=== PATIENT | female | born 1975 | race African-American/Black ===

== ENCOUNTER 2017-03-06 13:51 | Emergency (ER) | payer BC, OTHER ==
[~2017-03-06] VITALS: Ht 175.3 cm; Wt 90.0 kg
[~2017-03-06 13:51] MED LIST: DARV PO; Z.0.NO CURRENT MEDS
[2017-03-06] MEDS ORDERED: SODIUM CHLOR 0.9% 1000 ML INJ 1,000 ML IV ONE (13:54)
--- NOTE | 2017-03-06 13:57 | PD ---
HPI Chief Complaint: Vertigo/Nausea/Vomiting Time Seen by Provider: 13:57 Travel History International Travel<30 days: No Contact w/Intl Traveler<30days: No Traveled to known affect area: No History of Present Illness HPI 41-year-old Afro-[place] female presents the emergency department via EMS with history of sudden onset dizziness, with severe nausea, and vomiting at 11:30 this morning while at work. Patient denies feeling unwell prior to this time. Patient denies headache, or other focal neuro deficit. Patient has no history of migraines in the past. Patient has no history of vertigo previous to this. She denies fever, chills, or other symptoms. Patient was given Zofran in the ambulance without much improvement. Patient states the room is spinning to the right. Patient has no known drug allergies. PFSH Past Medical History : 2 Para: 2 Social History Alcohol Use: No Tobacco Use: No Substance Use: No Allergies-Medications (Allergen,Severity, Reaction): Coded Allergies: No Known Allergies (Verified , 03/06/17) Reported Meds & Prescriptions Reported Meds & Active Scripts Active Review of Systems Except as stated in HPI: all other systems reviewed are Neg General / Constitutional: No: Fever, Chills Eyes: No: Diploplia, Blurred Vision, Photophobia, Drainage, Redness, Pain, Tearing, Blind Spots, Visual changes, Blindness HENT: Positive: Vertigo, No: Headaches, Lightheadedness, Sore Throat, Rhinitis , Rhinorrhea, Congestion, Nosebleed, Neck Stiffness, Neck Pain, Dental Difficulties, Earache Cardiovascular: No: Chest Pain or Discomfort Respiratory: No: Shortness of Breath Gastrointestinal: Positive: Nausea, Vomiting, No: Diarrhea, Abdominal Pain Genitourinary: No: Dysuria Musculoskeletal: No: Pain Skin: No Rash Neurologic: No: Weakness Psychiatric: No: Depression Endocrine: No: Polydipsia Hematologic/Lymphatic: No: Easy Bruising Physical Exam Narrative GENERAL: Patient appears in moderate distress. Patient actively dry heaving upon arrival. Patient is oriented 3 otherwise. SKIN: Warm and dry. Normal color. Normal turgor. HEAD: Atraumatic. Normocephalic. EYES: Pupils equal and round. No scleral icterus. No injection or drainage. Patient has moderate right going rotary nystagmus with ocular motion. ENT: No nasal bleeding or discharge. Mucous membranes pink and moist. Pharynx is normal. NECK: Trachea midline. Neck is supple and nontender. No bruits appreciated. CARDIOVASCULAR: Regular rate and rhythm. No murmurs gallops or rubs. RESPIRATORY: No accessory muscle use. Clear to auscultation. Breath sounds equal bilaterally. MUSCULOSKELETAL: Extremities without clubbing, cyanosis, or edema. No obvious deformities. NEUROLOGICAL: Awake and alert. No obvious cranial nerve deficits. Motor grossly within normal limits. Five out of 5 muscle strength in the arms and legs. Normal speech. PSYCHIATRIC: Appropriate mood and affect; insight and judgment normal. Data Data Last Documented VS Vital Signs Date Time Temp Pulse Resp B/P Pulse Ox O2 Delivery O2 Flow Rate FiO2 03/06/17 14:20 97 03/06/17 14:16 97.8 54 20 111/53 Orders Electrocardiogram (03/06/17 13:54) Ed Urine Pregnancytest Poc (03/06/17 13:54) Complete Blood Count With Diff (03/06/17 13:54) Comprehensive Metabolic Panel (03/06/17 13:54) Urinalysis - C+S If Indicated (03/06/17 13:54) Ct Brain W/O Iv Contrast(Rout) (03/06/17 13:54) Ecg Monitoring (03/06/17 13:54) Iv Access Insert/Monitor (03/06/17 13:54) Oximetry (03/06/17 13:54) Meclizine (Antivert) (03/06/17 14:00) Sodium Chloride 0.9% Flush (Ns Flush) (03/06/17 14:00) Sodium Chlor 0.9% 1000 Ml Inj (Ns 1000 M (03/06/17 13:54) Diphenhydramine Inj (Benadryl Inj) (03/06/17 14:00) Prochlorperazine Inj (Compazine Inj) (03/06/17 14:00) Beta Hcg (Quant/Titer) (03/06/17 14:00) Prochlorperazine Inj (Compazine Inj) (03/06/17 14:15) Labs Laboratory Tests Test 03/06/17 13:58 White Blood Count 21.3 TH/MM3 Red Blood Count 4.73 MIL/MM3 Hemoglobin 13.4 GM/DL Hematocrit 39.5 % Mean Corpuscular Volume 83.4 FL Mean Corpuscular Hemoglobin 28.2 PG Mean Corpuscular Hemoglobin 33.8 % Concent Red Cell Distribution Width 13.9 % Platelet Count 299 TH/MM3 Mean Platelet Volume 8.2 FL Neutrophils (%) (Auto) 75.7 % Lymphocytes (%) (Auto) 17.6 % Monocytes (%) (Auto) 5.7 % Eosinophils (%) (Auto) 0.5 % Basophils (%) (Auto) 0.5 % Neutrophils # (Auto) 16.1 TH/MM3 Lymphocytes # (Auto) 3.8 TH/MM3 Monocytes # (Auto) 1.2 TH/MM3 Eosinophils # (Auto) 0.1 TH/MM3 Basophils # (Auto) 0.1 TH/MM3 CBC Comment DIFF FINAL Differential Comment Total Bilirubin 0.3 MG/DL Alkaline Phosphatase 60 U/L Total Protein 7.8 GM/DL Human Chorionic Gonadotropin, LESS THAN 1 Quant MIU/ML MDM Medical Decision Making Medical Screen Exam Complete: Yes Emergency Medical Condition: Yes Differential Diagnosis Sudden onset of vertigo. Nausea and vomiting. Possible CVA. Narrative Course Patient is medically stable in the ambulance thomas when I examined her. Labs ordered including CBC, CMP, PT PTT and INR, serum hCG. CT of the head is ordered. IV access is obtained patient is given 10 mg Compazine IV as well as 25 mg Benadryl IV. Patient will be given 50 mg meclizine by mouth when nausea is controlled. Patient is awaiting medical bed placement. Patient has moved to [facility] and care is turned over to Mook Huynh PA-C. Condition: Stable Pb Lowry Mar 06, 2017 13:57
[2017-03-06] MEDS ORDERED: MECLIZINE HCL 25 MG TAB PO ONE (14:00)
[2017-03-06] MEDS ORDERED: SODIUM CHLORIDE 0.9% FLUSH 10 ML FLUSH IVF PRN (14:00)
[2017-03-06] MEDS ORDERED: diphenhydrAMINE HCL 50 MG/ML VIAL IV PUSH ONE (14:00)
[2017-03-06] MEDS ORDERED: PROCHLORPERAZINE INJ 10 MG/2 ML VIAL IM ONE (14:00)
[2017-03-06 14:15] LABS: AUTOMATED NEUTROPHIL # 16.1 TH/MM3 (1.8-7.7); BASOPHIL # 0.1 TH/MM3 (0-0.2); BASOPHIL % 0.5 % (0.0-2.0); EOSINOPHIL # 0.1 TH/MM3 (0-0.4); EOSINOPHIL % 0.5 % (0.0-4.0); HEMATOCRIT 39.5 % (35.0-46.0); HEMO FLAGS DIFF FINAL; LYMPH % 17.6 % (9.0-44.0); LYMPHOCYTE # 3.8 TH/MM3 (1.0-4.8); MEAN CELL VOLUME 83.4 FL (80.0-100.0); MEAN CORPUSCULAR HEMOGLOBIN 28.2 PG (27.0-34.0); MEAN CORPUSCULAR HGB CONC 33.8 % (32.0-36.0); MONO % 5.7 % (0.0-8.0); NEUT % 75.7 % (16.0-70.0); PLATELET COUNT 299 TH/MM3 (150-450); RED BLOOD COUNT 4.73 MIL/MM3 (4.00-5.30); RED CELL DISTRIBUTION WIDTH 13.9 % (11.6-17.2); WHITE BLOOD COUNT 21.3 TH/MM3 (4.0-11.0)
[2017-03-06] MEDS ORDERED: PROCHLORPERAZINE INJ 10 MG/2 ML VIAL IV PUSH ONE (14:15)
[2017-03-06 14:16] VITALS: BP 111/53; PULSE 54; RESP 20; TEMP 97.8; O2SAT 97
[2017-03-06 14:20] VITALS: O2SAT 97
[2017-03-06 14:35] LABS: ALKALINE PHOSPHATASE 60 U/L (45-117); BETA HCG QUANT LESS THAN 1 MIU/ML (0-5); TOTAL BILIRUBIN ADULT 0.3 MG/DL (0.2-1.0)
[2017-03-06 14:49] LABS: ALT (GPT) 21 U/L (10-53); ANION GAP 12 MEQ/L (5-15); AST (GOT) 18 U/L (15-37); BICARBONATE 22.2 MEQ/L (21.0-32.0); BLOOD UREA NITROGEN 10 MG/DL (7-18); CHLORIDE 104 MEQ/L (98-107); GLOMERULAR FILTRATION RATE 77 ML/MIN (>89); POTASSIUM 3.8 MEQ/L (3.5-5.1); SODIUM (NA) 138 MEQ/L (136-145)
--- NOTE | 2017-03-06 15:19 | RADRPT ---
EXAM DATE/TIME: 03/06/2017 15:07 [place] COMPARISON: No previous studies available for comparison. INDICATIONS : Sudden onset of dizziness, nausea. RADIATION DOSE: 51.63 CTDIvol (mGy) MEDICAL HISTORY : None SURGICAL HISTORY : None. ENCOUNTER: Initial ACUITY: 1 day PAIN SCALE: 0/10 LOCATION: cranial TECHNIQUE: Multiple contiguous axial images were obtained of the head. Using automated exposure control and adj ustment of the mA and/or kV according to patient size, radiation dose was kept as low as reasonably a chievable to obtain optimal diagnostic quality images. FINDINGS: CEREBRUM: The ventricles are normal. No evidence of midline shift, mass lesion, hemorrhage or acute infarction . No extra-axial fluid collections are seen. POSTERIOR FOSSA: The cerebellum and brainstem demonstrate no acute finding. The 4th ventricle is midline. The cerebe llopontine angle is unremarkable. EXTRACRANIAL: Visualized sinuses are clear. SKULL: The calvaria is intact. No evidence of skull fracture. CONCLUSION: No acute intracranial abnormality is identified. Sang Martin MD on March 06, 2017 at 15:15 Board Certified Radiologist. This report was verified electronically.
[2017-03-06] MEDS ORDERED: birth control PO ×2 (15:55)
[2017-03-06 16:01] LABS: BACTERIA, URINE RARE /hpf; BLOOD, URINE NEG (NEG); COMMENT (UR) CULT NOT INDICATED; CULTURE IF INDICATED CULT NOT INDICATED; GLUCOSE,URINE NEG (NEG); KETONE, URINE TRACE mg/dL (NEG); MUCUS URINE FEW /lpf (OCC); NITRITE,URINE NEG (NEG); SQUAMOUS EPITHELIAL CELL URINE <1 /hpf (0-5); URINE COLOR YELLOW (YELLW/STRAW)
[2017-03-06] MEDS ORDERED: MECL-62 PO (16:15)
--- NOTE | 2017-03-06 16:20 | PD ---
Physical Exam Date Seen by Provider: Mar 06, 2017 Time Seen by Provider: 16:16 Narrative 41-year-old female that presents to the ED for evaluation of possible vertigo. Patient was initially seen by Pb Garcia PA-C. Please refer to his note. Patient was signed out to me pending labs and reassessment. Data Data Last Documented VS Vital Signs Date Time Temp Pulse Resp B/P Pulse Ox O2 Delivery O2 Flow Rate FiO2 03/06/17 14:20 97 03/06/17 14:16 97.8 54 20 111/53 Orders Electrocardiogram (03/06/17 13:54) Ed Urine Pregnancytest Poc (03/06/17 13:54) Complete Blood Count With Diff (03/06/17 13:54) Comprehensive Metabolic Panel (03/06/17 13:54) Urinalysis - C+S If Indicated (03/06/17 13:54) Ct Brain W/O Iv Contrast(Rout) (03/06/17 13:54) Ecg Monitoring (03/06/17 13:54) Iv Access Insert/Monitor (03/06/17 13:54) Oximetry (03/06/17 13:54) Meclizine (Antivert) (03/06/17 14:00) Sodium Chloride 0.9% Flush (Ns Flush) (03/06/17 14:00) Sodium Chlor 0.9% 1000 Ml Inj (Ns 1000 M (03/06/17 13:54) Diphenhydramine Inj (Benadryl Inj) (03/06/17 14:00) Prochlorperazine Inj (Compazine Inj) (03/06/17 14:00) Beta Hcg (Quant/Titer) (03/06/17 14:00) Prochlorperazine Inj (Compazine Inj) (03/06/17 14:15) Cath For Specimen (03/06/17 15:13) Labs Laboratory Tests Test 03/06/17 03/06/17 13:58 15:20 White Blood Count 21.3 TH/MM3 Red Blood Count 4.73 MIL/MM3 Hemoglobin 13.4 GM/DL Hematocrit 39.5 % Mean Corpuscular Volume 83.4 FL Mean Corpuscular Hemoglobin 28.2 PG Mean Corpuscular Hemoglobin 33.8 % Concent Red Cell Distribution Width 13.9 % Platelet Count 299 TH/MM3 Mean Platelet Volume 8.2 FL Neutrophils (%) (Auto) 75.7 % Lymphocytes (%) (Auto) 17.6 % Monocytes (%) (Auto) 5.7 % Eosinophils (%) (Auto) 0.5 % Basophils (%) (Auto) 0.5 % Neutrophils # (Auto) 16.1 TH/MM3 Lymphocytes # (Auto) 3.8 TH/MM3 Monocytes # (Auto) 1.2 TH/MM3 Eosinophils # (Auto) 0.1 TH/MM3 Basophils # (Auto) 0.1 TH/MM3 CBC Comment DIFF FINAL Differential Comment Sodium Level 138 MEQ/L Potassium Level 3.8 MEQ/L Chloride Level 104 MEQ/L Carbon Dioxide Level 22.2 MEQ/L Anion Gap 12 MEQ/L Blood Urea Nitrogen 10 MG/DL Creatinine 0.96 MG/DL Estimat Glomerular Filtration 77 ML/MIN Rate Random Glucose 122 MG/DL Calcium Level 9.2 MG/DL Total Bilirubin 0.3 MG/DL Aspartate Amino Transf 18 U/L (AST/SGOT) Alanine Aminotransferase 21 U/L (ALT/SGPT) Alkaline Phosphatase 60 U/L Total Protein 7.8 GM/DL Albumin 3.4 GM/DL Human Chorionic Gonadotropin, LESS THAN 1 Quant MIU/ML Urine Color YELLOW Urine Turbidity CLEAR Urine pH 7.0 Urine Specific [place] 1.026 Urine Protein TRACE mg/dL Urine Glucose (UA) NEG mg/dL Urine Ketones TRACE mg/dL Urine Occult Blood NEG Urine Nitrite NEG Urine Bilirubin NEG Urine Urobilinogen LESS THAN 2.0 MG/DL Urine Leukocyte Esterase NEG Urine RBC 5 /hpf Urine WBC 2 /hpf Urine Squamous Epithelial <1 /hpf Cells Urine Bacteria RARE /hpf Urine Mucus FEW /lpf Microscopic Urinalysis Comment CULT NOT INDICATED MDM Medical Record Reviewed: Yes Supervised Visit with MACKENZIE: No Interpretation(s) CBC & BMP Diagram 03/06/17 13:58 UA negative LFTS WNL Last Impressions Head CT 03/06/17 1354 Signed Impressions: Service Date/Time: Monday, March 06, 2017 15:07 - CONCLUSION: No acute intracranial abnormality is identified. Sang Martin MD Differential Diagnosis Vertigo versus electrolyte abnormality versus positional vertigo versus labyrinthitis versus sinusitis versus Mnire's disease versus CVA Narrative Course 41-year-old female that presents to the ED for evaluation of nausea and vomiting and dizziness. Patient was evaluated initially by Pb Garcia PA-C. Please refer to his note. I was asked to disposition patient pending labs and imaging. Labs and imaging here were essentially unremarkable. Patient was reassessed and does feel improved. Patient does have an elevated levels a can of unknown etiology. Patient does not appear to be tachycardia of having signs of fever or infectious disorder. This was discussed in my attending who agrees with plan. Dr. Haji agrees with discharge. Patient will be sent home with prescription for meclizine. Follow-up with PCP. See ED for worsening symptoms. Diagnosis Primary Impression: Vertigo Patient Instructions: General Instructions Departure Forms: Tests/Procedures, Work Release Enter return to work date: Mar 08, 2017 Additional Instruction: Take medication as prescribed. Follow with PCP. See ED if worsening symptoms. Med/Other Pt SpecificInfo: Prescription(s) given Scripts Meclizine 25 Mg Tab50 Mg PO TID PRN (VERTIGO) 14 Days Ref 0 Prov:Zaira Aguirre MD 03/06/17 Disposition: 01 DISCHARGE HOME Condition: Stable Mook Huynh Mar 06, 2017 16:20
[2017-03-06 16:59] VITALS: BP 120/68
--- NOTE | 2017-03-07 11:26 | EKG ---
Date Performed: 03/06/2017 Time Performed: 14:32:53 PTAGE: 41 years EKG: Sinus rhythm POSSIBLE LEFT ATRIAL ENLARGEMENT POSSIBLE RIGHT VENTRICULAR CONDUCTION DELAY NONSPECIFIC T-WAVE ABNO RMALITY BORDERLINE ECG INTERPRETATION BASED ON A DEFAULT AGE OF 40 YEARS NO PREVIOUS TRACING DOCTOR: Denys Avendano Interpretating Date/Time 03/07/2017 11:24:07
== END 2017-03-06 17:15 | disposition home or self-care (01) ==
LOC: NEPC 13:51
DX: R42 Dizziness and giddiness (principal); R11.2 Nausea with vomiting, unspecified; R94.31 Abnormal electrocardiogram [ECG] [EKG]
CPT/HCPCS: 70450; 80053; 81001; 84702; 84703; 85025; 93005; 96374; 96375; 99284; J0780; J1200; J7030; P9612

== ENCOUNTER 2017-03-07 22:05 | Observation (INO) | payer OTHER ==
[~2017-03-07] VITALS: Ht 175.3 cm; Wt 87.0 kg
[~2017-03-07 22:05] MED LIST changes: +MECL-62 PO; +birth control PO
[2017-03-07 22:08] VITALS: BP 152/104; PULSE 72; RESP 15; TEMP 98.8; O2SAT 99
[2017-03-07] MEDS ORDERED: SODIUM CHLOR 0.9% 1000 ML INJ 1,000 ML IV SCH (23:57)
[2017-03-08] MEDS ORDERED: MECLIZINE HCL 25 MG TAB PO ONE
[2017-03-08] MEDS ORDERED: ONDANSETRON HCL 4 MG/2 ML VIAL IVP ONE
[2017-03-08] MEDS ORDERED: SODIUM CHLORIDE 0.9% FLUSH 10 ML FLUSH IV FLUSH PRN
--- NOTE | 2017-03-08 00:04 | PD ---
HPI Chief Complaint: Dizziness Time Seen by Provider: 23:47 Travel History International Travel<30 days: No Contact w/Intl Traveler<30days: No Traveled to known affect area: No History of Present Illness HPI 41-year-old female here for evaluation of dizziness, nausea, and vomiting. Patient was seen in the emergency department yesterday for similar symptoms. She states her symptoms started yesterday around 1:00 PM. She was treated in the emergency department and discharged home feeling improved. Symptoms returned today at around 9:00 AM and have been persistent throughout the day. She tried taking meclizine was prescribed to her yesterday 2 without improvement in symptoms. She states that she feels like she is on a merry-go- round. Symptoms are somewhat improved when she closes her eyes, worse when she opens her eyes as well as with movements.. She denies headache, neck pain or stiffness, fevers or chills. No abdominal pain. CT head performed yesterday showed no acute intracranial abnormality. CBC showed a leukocytosis of 21,000 which was deemed to be nonspecific. CMP was unremarkable. UA was not suggestive of UTI. Patient reports emesis is non-bilious, there may been some blood the last time she vomited. PFSH Past Medical History ?: Not LMP: 02/16/17 : 2 Para: 2 Social History Alcohol Use: No Tobacco Use: No Substance Use: No Allergies-Medications (Allergen,Severity, Reaction): Coded Allergies: No Known Allergies (Verified , 03/07/17) Reported Meds & Prescriptions Reported Meds & Active Scripts Active Meclizine (Meclizine HCl) 25 Mg Tab 50 Mg PO TID PRN 14 Days Reported [ control] 1 Tab PO DAILY Review of Systems Except as stated in HPI: all other systems reviewed are Neg Physical Exam Narrative GENERAL: Well-developed, well-nourished, keeps eyes closed, no acute distress. SKIN: Focused skin assessment warm/dry. No rash. No pallor. HEAD: Atraumatic. Normocephalic. EYES: Pupils equal and round. Horizontal nystagmus. No scleral icterus. No injection or drainage. ENT: No nasal bleeding or discharge. Mucous membranes pink and moist. Bilateral tympanic membranes and external auditory canals are normal. NECK: Trachea midline. No JVD. No nuchal rigidity. CARDIOVASCULAR: Regular rate and rhythm. RESPIRATORY: No accessory muscle use. Clear to auscultation. Breath sounds equal bilaterally. GASTROINTESTINAL: Abdomen soft, non-tender, nondistended. MUSCULOSKELETAL: No obvious deformities. No clubbing. No cyanosis. No edema. NEUROLOGICAL: Awake and alert. No obvious cranial nerve deficits. Motor grossly within normal limits. Normal speech. No focal deficits. PSYCHIATRIC: Appropriate mood and affect; insight and judgment normal. Data Data Last Documented VS Vital Signs Date Time Temp Pulse Resp B/P Pulse Ox O2 Delivery O2 Flow Rate FiO2 03/08/17 01:02 97 Room Air 03/08/17 01:02 61 18 146/93 03/07/17 22:08 98.8 Orders Beta Hcg (Quant/Titer) (03/07/17 23:57) Complete Blood Count With Diff (03/07/17 23:57) Comprehensive Metabolic Panel (03/07/17 23:57) Prothrombin Time / Inr (Pt) (03/07/17 23:57) Act Partial Throm Time (Ptt) (03/07/17 23:57) Urinalysis - C+S If Indicated (03/07/17 23:57) Iv Access Insert/Monitor (03/07/17 23:57) Ecg Monitoring (03/07/17 23:57) Oximetry (03/07/17 23:57) Ondansetron Inj (Zofran Inj) (03/08/17 00:00) Sodium Chlor 0.9% 1000 Ml Inj (Ns 1000 M (03/07/17 23:57) Sodium Chloride 0.9% Flush (Ns Flush) (03/08/17 00:00) Electrocardiogram (03/07/17 23:57) Meclizine (Antivert) (03/08/17 00:00) Metoclopramide Inj (Reglan Inj) (03/08/17 01:45) Labs Laboratory Tests Test 03/08/17 03/08/17 00:15 01:45 White Blood Count 14.4 TH/MM3 Red Blood Count 4.78 MIL/MM3 Hemoglobin 13.7 GM/DL Hematocrit 39.9 % Mean Corpuscular Volume 83.4 FL Mean Corpuscular Hemoglobin 28.7 PG Mean Corpuscular Hemoglobin 34.4 % Concent Red Cell Distribution Width 13.7 % Platelet Count 279 TH/MM3 Mean Platelet Volume 8.4 FL Neutrophils (%) (Auto) 76.0 % Lymphocytes (%) (Auto) 17.9 % Monocytes (%) (Auto) 5.5 % Eosinophils (%) (Auto) 0.3 % Basophils (%) (Auto) 0.3 % Neutrophils # (Auto) 11.0 TH/MM3 Lymphocytes # (Auto) 2.6 TH/MM3 Monocytes # (Auto) 0.8 TH/MM3 Eosinophils # (Auto) 0.0 TH/MM3 Basophils # (Auto) 0.0 TH/MM3 CBC Comment DIFF FINAL Differential Comment Prothrombin Time 10.6 SEC Prothromb Time International 1.0 RATIO Ratio Activated Partial 25.1 SEC Thromboplast Time Sodium Level 138 MEQ/L Potassium Level 3.6 MEQ/L Chloride Level 104 MEQ/L Carbon Dioxide Level 25.5 MEQ/L Anion Gap 9 MEQ/L Blood Urea Nitrogen 9 MG/DL Creatinine 0.93 MG/DL Estimat Glomerular Filtration 80 ML/MIN Rate Random Glucose 92 MG/DL Calcium Level 8.8 MG/DL Total Bilirubin 0.4 MG/DL Aspartate Amino Transf 19 U/L (AST/SGOT) Alanine Aminotransferase 21 U/L (ALT/SGPT) Alkaline Phosphatase 57 U/L Total Protein 7.6 GM/DL Albumin 3.4 GM/DL Human Chorionic Gonadotropin, LESS THAN 1 Quant MIU/ML Urine Color YELLOW Urine Turbidity CLEAR Urine pH 7.0 Urine Specific [place] 1.021 Urine Protein TRACE mg/dL Urine Glucose (UA) NEG mg/dL Urine Ketones 80 mg/dL Urine Occult Blood TRACE Urine Nitrite NEG Urine Bilirubin NEG Urine Urobilinogen LESS THAN 2.0 MG/DL Urine Leukocyte Esterase TRACE Urine RBC 6 /hpf Urine WBC 1 /hpf Urine Squamous Epithelial 5 /hpf Cells Urine Renal Epithelial Cells <1 /hpf Urine Bacteria RARE /hpf Urine Mucus MOD /lpf Microscopic Urinalysis Comment CULT NOT INDICATED MDM Medical Decision Making Medical Screen Exam Complete: Yes Emergency Medical Condition: Yes Interpretation(s) EKG: Sinus, rate 56, normal axis, normal intervals, no acute ischemic abnormality. Differential Diagnosis Vertigo, metabolic abnormality, intracranial abnormality Narrative Course Initial vital signs show heart rate 72, blood pressure 152/104, pulse ox 99% on room air, oral temp of 98.8F. CBC shows WBC 14.4, hemoglobin 13.7, hematocrit 39.9, platelets 279, neutrophils 76%. CMP is unremarkable. Beta hCG is negative. UA is remarkable for 80 ketones, trace occult blood, trace leukocyte esterase, 6 rbc's, rare bacteria, not suggestive of UTI. Patient had a CT head performed yesterday which was unremarkable. The patient was given a liter of normal saline IV, IV Zofran, and will make was in and had slight improvement in symptoms, however when she moves or sits up she becomes extremely nauseous/dizzy again and vomits. When she closes her eyes or symptoms seemed to improve. She was given a dose of Reglan, however she still feels extremely nauseous especially when sitting up. Her symptoms sound like benign paroxysmal positional vertigo, and less likely a central cause for her vertigo. Given intractable symptoms, the patient will be admitted for overnight observation. Case discussed with [facility] hospitalist Dr. Nolasco. The patient will be admitted to their service under Dr. Edge for overnight observation for intractable vertigo. Diagnosis Primary Impression: Vertigo Additional Impression: Intractable nausea and vomiting Qualified Code: R11.2 - Intractable vomiting with nausea, unspecified vomiting type Admitting Information Admitting Physician Requests: Observation Mohan Melchor MD Mar 08, 2017 00:04
[2017-03-08 00:35] LABS: BASOPHIL % 0.3 % (0.0-2.0); EOSINOPHIL % 0.3 % (0.0-4.0); HEMATOCRIT 39.9 % (35.0-46.0); HEMO FLAGS DIFF FINAL; LYMPH % 17.9 % (9.0-44.0); LYMPHOCYTE # 2.6 TH/MM3 (1.0-4.8); MEAN CELL VOLUME 83.4 FL (80.0-100.0); MEAN CORPUSCULAR HEMOGLOBIN 28.7 PG (27.0-34.0); MEAN CORPUSCULAR HGB CONC 34.4 % (32.0-36.0); MONO % 5.5 % (0.0-8.0); PLATELET COUNT 279 TH/MM3 (150-450); RED BLOOD COUNT 4.78 MIL/MM3 (4.00-5.30); RED CELL DISTRIBUTION WIDTH 13.7 % (11.6-17.2); WHITE BLOOD COUNT 14.4 TH/MM3 (4.0-11.0)
[2017-03-08 00:46] LABS: APTT (PATIENT) 25.1 SEC (24.3-30.1); PROTHROMBIN TIME - PATIENT 10.6 SEC (9.8-11.6)
[2017-03-08 00:59] LABS: ANION GAP 9 MEQ/L (5-15); AST (GOT) 19 U/L (15-37); BICARBONATE 25.5 MEQ/L (21.0-32.0); BLOOD UREA NITROGEN 9 MG/DL (7-18); CHLORIDE 104 MEQ/L (98-107); GLOMERULAR FILTRATION RATE 80 ML/MIN (>89); POTASSIUM 3.6 MEQ/L (3.5-5.1); SODIUM (NA) 138 MEQ/L (136-145)
[2017-03-08 01:02] VITALS: BP 146/93; PULSE 61; RESP 18; O2SAT 97; O2SAT 98
[2017-03-08 01:04] LABS: ALKALINE PHOSPHATASE 57 U/L (45-117); ALT (GPT) 21 U/L (10-53); BETA HCG QUANT LESS THAN 1 MIU/ML (0-5); TOTAL BILIRUBIN ADULT 0.4 MG/DL (0.2-1.0)
[2017-03-08] MEDS ORDERED: METOCLOPRAMIDE HCL 10 MG/2 ML VIAL IV PUSH ONE (01:45)
[2017-03-08 02:12] LABS: BACTERIA, URINE RARE /hpf; BLOOD, URINE TRACE (NEG); GLUCOSE,URINE NEG (NEG); KETONE, URINE 80 mg/dL (NEG); MUCUS URINE MOD /lpf (OCC); NITRITE,URINE NEG (NEG); RENAL EPITHELIAL CELLS <1 /hpf; SQUAMOUS EPITHELIAL CELL URINE 5 /hpf (0-5); URINE COLOR YELLOW (YELLW/STRAW)
[2017-03-08 02:14] LABS: COMMENT (UR) CULT NOT INDICATED; CULTURE IF INDICATED CULT NOT INDICATED
[2017-03-08] MEDS ORDERED: ONDANSETRON HCL 4 MG/2 ML VIAL IV PUSH PRN (02:30)
[2017-03-08] MEDS: SODIUM CHLOR 0.9% 1000 ML INJ 1,000 ML IV SCH ×2 (03:19→13:20)
[2017-03-08 05:43] VITALS: BP 126/86; PULSE 62; RESP 18; TEMP 98.4; O2SAT 96
[2017-03-08 06:08] VITALS: BP 132/85; PULSE 66; RESP 20; TEMP 98.7; O2SAT 100
[2017-03-08] MEDS: MECLIZINE HCL 25 MG TAB PO SCH ×2 (06:12→13:19)
[2017-03-08 08:18] VITALS: BP 146/79; PULSE 62; RESP 18; TEMP 95.7; O2SAT 97
[2017-03-08 08:40] LABS: AUTOMATED NEUTROPHIL # 8.5 TH/MM3 (1.8-7.7); BASOPHIL # 0.1 TH/MM3 (0-0.2); BASOPHIL % 0.5 % (0.0-2.0); EOSINOPHIL # 0.1 TH/MM3 (0-0.4); EOSINOPHIL % 0.6 % (0.0-4.0); HEMATOCRIT 36.1 % (35.0-46.0); HEMO FLAGS DIFF FINAL; LYMPH % 26.2 % (9.0-44.0); LYMPHOCYTE # 3.4 TH/MM3 (1.0-4.8); MEAN CELL VOLUME 83.6 FL (80.0-100.0); MEAN CORPUSCULAR HGB CONC 34.7 % (32.0-36.0); MONO % 7.2 % (0.0-8.0); NEUT % 65.5 % (16.0-70.0); PLATELET COUNT 266 TH/MM3 (150-450); RED BLOOD COUNT 4.32 MIL/MM3 (4.00-5.30); RED CELL DISTRIBUTION WIDTH 13.9 % (11.6-17.2); WHITE BLOOD COUNT 12.9 TH/MM3 (4.0-11.0)
--- NOTE | 2017-03-08 10:07 | HHI.HP ---
HPI Service [facility] Hospitalists Primary Care Physician Sarah Esposito MD Admission Diagnosis intractable vertigo, intractable nausea and vomiting Chief Complaint: Dizziness, N/V Travel History International Travel<30 Days: No Contact w/Intl Traveler <30 Da: No Traveled to Known Affected Are: No History of Present Illness Mrs. Finney is a pleasant 41 y/o AAF without significant PMH. She presented to the ED at [facility] on 03/06/17 and again on 03/07/17 with complaints of dizziness, nausea, and vomiting. Patients first visit to the ED on 03/06 she reported sudden onset of dizziness, N/V that began around 1:00 PM that day. She had a Head CT which was negative and she was diagnosed with vertigo and prescribed Meclizine. Pt was feeling improved prior to her discharge home. Then on 03/07, at around 9:00 AM, her symptoms returned and continued to be persistent throughout the day yesterday. She tried taking meclizine 2 doses without improvement in symptoms. She states that she feels like she is on a merry-go- round. Her symptoms are somewhat improved when she closes her eyes and doesn't move, but worsen when she opens her eyes as well as with movements. She denies headache, neck pain or stiffness, fevers or chills. No abdominal pain. CBC on 03/06 showed a leukocytosis of 21,000 which was deemed to be nonspecific. Repeat labs on 03/07 with WBC count 14,000 and today down to 12,900. CMP was unremarkable. UA was not suggestive of UTI. She was given IVF, antiemetics and Meclizine in the ED last night. Pt is feeling better overall and is ambulating to the bathroom with minimal dizziness Review of Systems Constitutional: COMPLAINS OF: Dizziness Eyes: DENIES: Vision loss Ears, nose, mouth, throat: COMPLAINS OF: Vertigo Cardiovascular: DENIES: Chest pain, Palpitations, Lower Extremity Edema Gastrointestinal: COMPLAINS OF: Nausea, Vomiting, DENIES: Abdominal pain Genitourinary: DENIES: Urgency, Hematuria, Dysuria Musculoskeletal: DENIES: Neck pain Integumentary: DENIES: Rash Neurologic: DENIES: Headache Psychiatric: DENIES: Confusion Past Family Social History Past Medical History Allergic rhinitis B12 deficiency Vitamin D deficiency Past Surgical History None reported Reported Medications Meclizine 50 Mg PO TID PRN 14 Days Myzilra OCP 1 Tab PO DAILY Allergies: Coded Allergies: No Known Allergies (Verified , 03/07/17) Family History Mother with hx of breast cancer Social History No reported tobacco, alcohol use or illicit drug use Pt is , 2 children Works as a escrow secretary Physical Exam Vital Signs Vital Signs Date Time Temp Pulse Resp B/P Pulse Ox O2 Delivery O2 Flow Rate FiO2 03/08/17 06:08 98.7 66 20 132/85 100 03/08/17 05:43 98.4 62 18 126/86 96 Room Air 03/08/17 01:02 97 Room Air 03/08/17 01:02 61 18 146/93 98 Room Air 03/07/17 23:51 55 22 95 Room Air 03/07/17 22:08 98.8 72 15 152/104 99 Room Air Physical Exam GENERAL: This is a well-nourished, well-developed patient, in no apparent distress. HEENT: Atraumatic. Normocephalic. No temporal or scalp tenderness. Horizontal nystagmus. No scleral icterus. Airway patent. NECK: Trachea midline, supple, nontender. CARDIO: Regular. RESP: CTA bilaterally. No wheezes, rales, or rhonchi. ABD: +BS, soft, non-tender, nondistended. EXT: Extremities without clubbing, cyanosis, or edema. NEURO: Awake and alert. Motor and sensory grossly within normal limits. Normal speech. Laboratory Laboratory Tests Test 03/08/17 03/08/17 03/08/17 00:15 01:45 08:15 White Blood Count 14.4 12.9 Red Blood Count 4.78 4.32 Hemoglobin 13.7 12.5 Hematocrit 39.9 36.1 Mean Corpuscular Volume 83.4 83.6 Mean Corpuscular Hemoglobin 28.7 29.0 Mean Corpuscular Hemoglobin 34.4 34.7 Concent Red Cell Distribution Width 13.7 13.9 Platelet Count 279 266 Mean Platelet Volume 8.4 8.2 Neutrophils (%) (Auto) 76.0 65.5 Lymphocytes (%) (Auto) 17.9 26.2 Monocytes (%) (Auto) 5.5 7.2 Eosinophils (%) (Auto) 0.3 0.6 Basophils (%) (Auto) 0.3 0.5 Neutrophils # (Auto) 11.0 8.5 Lymphocytes # (Auto) 2.6 3.4 Monocytes # (Auto) 0.8 0.9 Eosinophils # (Auto) 0.0 0.1 Basophils # (Auto) 0.0 0.1 CBC Comment DIFF FINAL DIFF FINAL Differential Comment Prothrombin Time 10.6 Prothromb Time International 1.0 Ratio Activated Partial 25.1 Thromboplast Time Sodium Level 138 Potassium Level 3.6 Chloride Level 104 Carbon Dioxide Level 25.5 Anion Gap 9 Blood Urea Nitrogen 9 Creatinine 0.93 Estimat Glomerular Filtration 80 Rate Random Glucose 92 Calcium Level 8.8 Total Bilirubin 0.4 Aspartate Amino Transf 19 (AST/SGOT) Alanine Aminotransferase 21 (ALT/SGPT) Alkaline Phosphatase 57 Total Protein 7.6 Albumin 3.4 Human Chorionic Gonadotropin, LESS THAN 1 Quant Urine Color YELLOW Urine Turbidity CLEAR Urine pH 7.0 Urine Specific [place] 1.021 Urine Protein TRACE Urine Glucose (UA) NEG Urine Ketones 80 Urine Occult Blood TRACE Urine Nitrite NEG Urine Bilirubin NEG Urine Urobilinogen LESS THAN 2.0 Urine Leukocyte Esterase TRACE Urine RBC 6 Urine WBC 1 Urine Squamous Epithelial 5 Cells Urine Renal Epithelial Cells <1 Urine Bacteria RARE Urine Mucus MOD Microscopic Urinalysis Comment CULT NOT INDICATED Result Diagram: 03/08/17 0815 03/08/17 0015 Septic Shock Reassessment Heart: Regular rate and rhythm Lungs: Clear Skin: Warm Peripheral Pulses: Bounding Right Radial Bounding Left Radial Bounding Right Popliteal Bounding Left Popliteal Bounding Right Dorsalis Pedis Bounding Left Dorsalis Pedis Bounding Right Posterior Tibial Bounding Left Posterior Tibial Assessment and Plan Problem List: (1) Vertigo Status: Acute Plan: - Pt admitted with a 2 day history of sudden onset dizziness like the room is spinning with associated nausea and vomiting which began on 03/06/17. - Pt was seen in the ED on 03/06 and discharged home with Meclizine but symptoms returned on 03/07 and she returned to the ED - Pt had a Head CT on 03/06 which was unremarkable. - She was noted to have leukocytosis which has been improving and may be reactive. There are no signs of infection and pt has been afebrile. - MRI Brain is negative - Carotid US is pending - Holter Monitor is pending. - Check B12, Folate, RPR, TSH/Free T4, and Ammonia level - Pt was started on IVF - Zofran PRN - Meclizine 25mg po Q6H - Pt is feeling better overall and is ambulating to the bathroom with minimal dizziness and would like to go home so we will send her home. She already has a prescription for Meclizine, prescribed by the ER on 03/06. She was instructed to take this three times per day for the next 4 days and then can take as needed. - PT for vestibular rehab @ [facility] in [place] with Honorio Mullen, phone number and referral provided to the pt for scheduling ([phone]) - Pt is to followup with her PCP, Dr. Esposito, in 1 week, call for an appt. (2) Intractable nausea and vomiting Status: Acute Plan: - See above. Assessment and Plan Patient examined. Assessment and plan formulated with Sherita Ordaz PA-C. I agree with the above. Problem Qualifiers (1) Intractable nausea and vomiting: Qualified Code: R11.2 - Intractable vomiting with nausea, unspecified vomiting type Sherita Ordaz Mar 08, 2017 10:07 Babatunde Edge DO Mar 18, 2017 10:42
[2017-03-08] MEDS ORDERED: GADODIAMIDE PF 287 MG/ML 20 ML VIAL (for RAD MRI) IV ONE (11:27)
[2017-03-08 12:00] LABS: FREE T4 0.94 NG/DL (0.76-1.46)
--- NOTE | 2017-03-08 12:01 | RADRPT ---
EXAM DATE/TIME: 03/08/2017 11:15 [facility] COMPARISON: No previous studies available for comparison. INDICATIONS : Dizziness. Vertigo and vomiting. CONTRAST: 17 cc Omniscan (gadodiamide) IV MEDICAL HISTORY : None. SURGICAL HISTORY : None. ENCOUNTER: Initial ACUITY: 1 day PAIN SCORE: 0/10 LOCATION: Head. TECHNIQUE: Multiplanar, multisequence MRI of the brain was performed both prior to and following the administrat ion of paramagnetic contrast. FINDINGS: CEREBRUM: The ventricles are normal for age. No evidence of midline shift, mass lesion, hemorrhage or acute in farction. No extraaxial fluid collections are seen. The pituitary gland and suprasellar cistern are normal in configuration. WHITE MATTER: No significant signal abnormalities are seen in the white matter. POSTERIOR FOSSA: The cerebellum and brainstem are intact. The 4th ventricle is midline. The cerebellopontine angle is unremarkable. The cerebellar tonsils are normal in position. DIFFUSION IMAGING: No focal areas of restricted diffusion are seen. No evidence of acute infarction. EXTRACRANIAL: The visualized portions of the orbits and paranasal sinuses are unremarkable. POST-CONTRAST: No abnormal areas of parenchymal or dural enhancement. No evidence of blood-brain barrier breakdown. CONCLUSION: Normal examination. Cirilo Hart MD on March 08, 2017 at 11:58 Board Certified Radiologist. This report was verified electronically.
[2017-03-08 12:10] VITALS: BP 138/78; PULSE 64; RESP 19; TEMP 96.7; O2SAT 96
[2017-03-08] MEDS ORDERED: ZOFR4TAB PO (15:12)
[2017-03-08 15:14] VITALS: BP 144/85; PULSE 64; RESP 8; TEMP 98.7; O2SAT 98
--- NOTE | 2017-03-08 15:38 | HHI.DCPOC ---
Discharge Care Plan Diagnosis: (1) Intractable nausea and vomiting (2) Vertigo Goals to Promote Your Health - Patient is to continue on the Meclizine, previously prescribed by the ER on 03/06. She was instructed to take this three times per day for the next 4 days and then can take as needed. - Patient will need PT for vestibular rehab @ [facility] in [place] with Honorio Mullen, phone number and referral provided to the pt for scheduling ([phone]) Directions to Meet Your Goals Take your medications as prescribed Follow your dietary instruction Follow activity as directed Keep your appointments as scheduled Take your immunizations and boosters as scheduled If your symptoms worsen call your PCP, if no PCP go to Urgent Care Center or Emergency Room Smoking is Dangerous to Your Health. Avoid second hand smoke Call the 24-hour hour crisis hotline for domestic abuse at Sherita Ordaz Mar 08, 2017 15:38 Babatunde Edge DO Mar 18, 2017 10:44
--- NOTE | 2017-03-08 16:17 | RADRPT ---
EXAM DATE/TIME: 03/08/2017 13:49 [facility] COMPARISON: No previous studies available for comparison. INDICATIONS : Dizziness. MEDICAL HISTORY : Vertigo. Nausea. Vomiting. SURGICAL HISTORY : D&C. ENCOUNTER: Initial ACUITY: 1 day PAIN SCORE: 12/05 LOCATION: Bilateral neck PEAK SYSTOLIC VELOCITIES (cm/sec): ICA/CCA RATIO: Right: 1.3 Left: 1.1 ICA: Right: 95 Left: 93 CCA: Right: 73 Left: 81 ECA: Right: 80 Left: 52 VERTEBRAL: Right: 55 antegrade Left: 54 antegrade Elevated flow velocities and ICA/CCA ratios have been found to correlate with increased degrees of vessel stenosis, calculated as percentage of diameter relative to a normal segment of distal ICA/CCA FINDINGS: RIGHT CAROTID: No significant stenosis is visualized. The waveforms are within normal limits. LEFT CAROTID: No significant stenosis is visualized. The waveforms are within normal limits. VERTEBRAL ARTERIES: Antegrade flow is seen in both vertebral arteries. MISCELLANEOUS: None. CONCLUSION: 1. No significant atherosclerotic disease or stenosis is present within either internal carotid arter y. 2. There is antegrade flow within both vertebral arteries. Sang Martin MD on March 08, 2017 at 16:13 Board Certified Radiologist. This report was verified electronically.
--- NOTE | 2017-03-09 08:01 | EKG ---
Date Performed: 03/08/2017 Time Performed: 00:23:51 PTAGE: 41 years EKG: SINUS BRADYCARDIA BORDERLINE ECG Compared to PREVIOUS TRACING , the sinus rate is slower. PREVIOUS TRACIN03/06/2017 14.32 DOCTOR: Markos Huynh Interpretating Date/Time 03/09/2017 08:00:57
--- NOTE | 2017-03-10 17:03 | HM ---
Date Performed: 03/09/2017 Time Performed: 14:39:00 HOOKUP DATE: 03/09/17 02:39:00 PM Fri ANALYSIS START TIME: 03/09/2017 2:44:00 PM ANALYSIS END TIME: 03/10/2017 2:48:00 PM PATIENT AGE: 41 PATIENT HEIGHT: 69 PATIENT WEIGHT: 191 DRUG LIST PATIENT DIAGNOSIS: VERTIGO TEST NARRATIVE: The patient's average heart rate was 78 BPM. Heart rates greater than 120 B PM were noted < 1% of the time. No episodes of bradycardia were noted. No pauses exceeding 2.0 s econds were noted. 1 ventricular ectopics, which represented < 1% of the total beat count, were n oted. The highest ventricular ectopic frequency occurred from 12:00 AM to 01:00 AM Sat. During this time 1 VE(s) occurred. Ventricular ectopics were observed as 1 isolated beat(s) only. No couplets or runs were noted. No episodes of ST depression (defined as -1.0 mm or more) were noted in c hannel 1. No episodes of ST depression (defined as -1.0 mm or more) were noted in channel 2. No epi sodes of ST depression (defined as -1.0 mm or more) were noted in channel 3. No diary events wer e reported by the patient. TEST INTERPRETATION: Agree with narrative. There are two episodes where there is a four beat run of supraventricular ectopy with the last to being somewhat aberrantly conducted, followed by normal Sinus rhythm . These are very brief episodes with no pauses present. No ventricular ectopy is seen and no other dan praventricular is seen. Overall this patient has two very brief episodes of four PACs in a row with s light abberant conduction. These episodes should be asymptomatic from electrical standpoint and there are no pauses or runs of rapid tachycardia. Overall this a very benign appearing Holter monitor. Signed by : Jb Pleitez
== END 2017-03-08 17:04 | disposition home or self-care (01) ==
LOC: NEPC 22:05 → NEDA 03-08 02:23 → NEPHCDU 03-08 06:05
PROVIDERS: ADMIT Hospitalist; ATTEND Hospitalist
DX: R42 Dizziness and giddiness (principal); R11.2 Nausea with vomiting, unspecified; D72.829 Elevated white blood cell count, unspecified; E53.8 Deficiency of other specified B group vitamins
CPT/HCPCS: 70553; 80053; 81001; 82140; 82607; 82746; 84439; 84443; 84702; 85025; 85610; 85730; 86592; 93005; 93225; 93226; 93880; 96374; 96375; 99285; A9579; G0378; J2405; J2765; J7030

== ENCOUNTER → 2018-02-27 | Outpatient (CLI) | payer OTHER ==
[~2018-02-27] MED LIST changes: -DARV PO; -Z.0.NO CURRENT MEDS; +ZOFR4TAB PO
== END ==
LOC: HPND 12:35
PROVIDERS: ATTEND Obstetrics & Gynecology
DX: O35.1XX0 Maternal care for (suspected) chromosomal abnormality in fetus, not applicable or unspecified (principal); O28.3 Abnormal ultrasonic finding on antenatal screening of mother; O09.522 Supervision of elderly multigravida, second trimester
CPT/HCPCS: 76811